=== PATIENT | female | born 1995 | race Caucasian/White ===

== ENCOUNTER 2021-03-29 14:59 | Emergency (ER) | payer MEDICAID, SELFPAY ==
[2021-03-29 15:06] VITALS: BP 93/53; PULSE 95; RESP 16; TEMP 36.6; O2SAT 98; BMI 19.0
[2021-03-29 16:03] LABS: Eosinophils Absolute Auto 0.1 X10*3/uL (0.0-0.4); Eosinophils Percent Auto 1.6 % (0-4); Imm Gran Abs Auto 0.01 X10*3/uL (0.00-0.03); Imm Gran Pct Auto 0.2 % (0.0-0.4); MANUAL DIFF FLAG SCAN; Mean Corpuscular HGB Conc 31.4 g/dl (31.0-35.0); Red Cell Distribution Width 14.4 % (11.0-16.0); SCAN SMEAR FLAG 1
[2021-03-29 16:15] LABS: Basophils Percent Auto 0.5 % (0-2); Hematocrit 36.6 % (37-47); Hemoglobin 11.5 g/dl (12.0-16.0); Lymphocytes Absolute Auto 1.3 X10*3/uL (1.2-4.9); Lymphocytes Percent Auto 30.2 % (20-40); Mean Corpuscular Hemoglobin 28.8 pg (27.0-33.0); Mean Corpuscular Volume 91.7 fL (80-98); Mean Platelet Volume 10.8 fL (9.4-12.3); Monocytes Absolute Auto 0.7 X10*3/uL (0.1-1.2); Monocytes Percent Auto 16.7 % (2-11); Neutrophils Absolute Auto 2.2 X10*3/uL (2.0-8.3); Neutrophils Percent Auto 50.8 % (45-73); Platelet Count 191 X10*3/uL (160-400); Red Blood Count 3.99 X10*6/uL (4.20-5.50); White Blood Count 4.3 X10*3/uL (4.8-10.8)
[2021-03-29 16:22] LABS: SLIDE REVIEW VERIFIED
[2021-03-29 16:38] LABS: Alanine Aminotransferase 20 U/L (0-31); Albumin Level 3.8 g/dL (3.5-5.0); Alkaline Phosphatase 66 U/L (39-117); Anion Gap 10 (12-20); Aspartate Amino Transferase 32 U/L (5-31); Bilirubin Total 0.2 mg/dL (0.0-1.0); Blood Urea Nitrogen 10 mg/dL (9-16); Calcium 8.7 mg/dL (8.4-10.2); Carbon Dioxide 24 mmol/L (22-29); Chloride 110 mmol/L (96-108); Creatinine Clr Calc Pharmacy 93.5; Estimated Glomerular Filt Rate > 60; Glucose Random 88 mg/dL (60-115); Potassium 3.9 mmol/L (3.3-5.1); Sodium 140 mmol/L (135-145); Total Protein 6.9 g/dL (6.5-8.0)
[2021-03-29 19:12] LABS: Glucose Urine UA NEG (NEG); Leukocyte Esterase Urine TRACE (NEG); Nitrite Urine NEG (NEG); PH 6.5 (5.0-8.0); UACC Culture Trigger YES; Urine Blood TRACE (NEG); Urine Ketones NEG (NEG); Urine Protein NEG (NEG-TRACE)
[2021-03-29 19:13] LABS: Appearance Urine CLEAR; Color Urine YELLOW
[2021-03-29 19:16] LABS: UPreg QC Valid YES; Urine Pregnancy NEGATIVE (NEGATIVE)
[2021-03-29 19:21] LABS: Bacteria Urine TRACE /LPF; Mucus Urine 1+ /LPF; RBC Urine 0-2 /HPF (0); Squamous Epithelial Cell Urine 2+ /LPF; WBC Urine 0-2 /HPF (0-4)
--- NOTE | 2021-03-29 21:37 | ED.HA ---
HPI - Headache General Chief Complaint: Headache Stated Complaint: severe headache Time Seen by Provider: 03/29/21 21:36 History of Present Illness HPI Narrative: 25-year-old female presents today having headache mostly in the frontal area. Patient attempted taking Motrin to no avail. Denies any fever chills or neck pain. No history of sudden in the family. History of having headaches in the past. No coughing or congestion and no upper respiratory symptoms. Patient is from home. No focal weakness. No new medication. No dizziness. Does not think she is . No abdominal pain. No vomiting. Positive mild nausea. The headache is worse with light. Worse with sound. There is no change in vision. Rates it at 8/10 Related Data Previous Rx's Medication Instructions Recorded ibuprofen 400 mg PO Q6H PRN #20 tab 03/29/21 Allergies Allergy/AdvReac Type Severity Reaction Status Date / Time No Known Allergies Allergy Unverified 07/03/20 18:30 Review of Systems Review of Systems: Constitutional: No Weight loss, No Fever, No Chills, No Night Sweats, No Fatigue, No Malaise ENT/Mouth: No Hearing loss, No Ear Pain, No Nasal Congestion, No Sinus Pain, No Hoarseness, No sore throat, No Rhinorrhea, No Swallowing Difficulty Eyes: No Eye Pain, No Swelling, No Redness, No Foreign Body, No Discharge, No Vision Changes Cardiovascular: No Chest Pain, No SOB, No Dyspnea on Exertion, No Orthopnea, No Edema, No Palpitations Respiratory: No Cough, No Sputum, No Wheezing, No Smoke Exposure, No Dyspnea Gastrointestinal: Positive Nausea, No Vomiting, No Diarrhea, No Constipation, No abdominal Pain, No Hematochezia, No Melena Genitourinary: no irregular bleeding, No Dysuria, No Urinary Frequency, No Hematuria, No Urinary Incontinence, No Urgency, No Flank Pain, No Urinary Flow Changes, No Hesitancy Musculoskeletal: No joint pain, No Myalgias, No Joint Swelling Skin: No Skin Lesions, No rash Neuro: No Weakness, No Numbness, No Paresthesias, No Loss of Consciousness, No Dizziness, positive Headache Psych: No Anxiety/Panic, No Depression, No SI/HI/AH/VH, No Social Issues, Heme/Lymph: No Bruising, No Bleeding,No Lymphadenopathy Endocrine: No Polyuria, No Polydipsia, No Temperature Intolerance PMFSH Past Medical History Medical History No known health problems Social History Social History Advance Directives: No Advance Directives Information Provided: Yes Patient : No Physical Exam Vital Signs: Vital Signs: Last Vital Signs Temp 98 F 03/29/21 15:06 Pulse 95 03/29/21 15:06 Resp 16 03/29/21 15:06 BP 93/53 L 03/29/21 15:06 Pulse Ox 98 03/29/21 15:06 Body Mass Index 19.0 Appearance: Alert. Oriented X3. No acute distress. Eyes: Pupils equal, round and reactive to light. ENT: Pharynx normal. Neck: Normal inspection. Neck supple. No lymph nodes noted. No crepitus CVS: Normal heart rate and rhythm. Pulses normal. Normal S1 and S2 Respiratory: No respiratory distress. Breath sounds normal. No Wheezing. No rales Abdomen: Soft and nontender. No rigidity. No distention. good BS x4 Skin: Skin warm and dry. Normal skin color. Normal skin turgor. Extremities: No lower extremity edema. Neurovascular intact to all extremities. No Lacerations. No Rash Neuro: Oriented X 3. No motor deficit. No sensory deficit. Moving all extermities. No slurred speech MDM - Headache MDM Narrative Medical decision making narrative: Neurologically intact. Headache improved with migraine treatment. Will discharge patient home. In stable condition. No evidence for bleed. Patient has no fever no chills no evidence for meningitis. In stable condition. Lab Data Result diagrams: 03/29/21 15:52 03/29/21 15:52 Labs: Lab Results 03/29/21 03/29/21 03/29/21 Range/Units 15:52 15:52 19:06 WBC 4.3 L (4.8-10.8) X10*3/uL RBC 3.99 L (4.20-5.50) X10*6/uL Hgb 11.5 L (12.0-16.0) g/dl Hct 36.6 L (37-47) % MCV 91.7 (80-98) fL MCH 28.8 (27.0-33.0) pg MCHC 31.4 (31.0-35.0) g/dl RDW 14.4 (11.0-16.0) % Plt Count 191 (160-400) X10*3/uL MPV 10.8 (9.4-12.3) fL Immature Gran % (Auto) 0.2 (0.0-0.4) % Neut % (Auto) 50.8 (45-73) % Lymph % (Auto) 30.2 (20-40) % [place] % (Auto) 16.7 H (2-11) % Eos % (Auto) 1.6 (0-4) % Baso % (Auto) 0.5 (0-2) % Lymph # (Auto) 1.3 (1.2-4.9) X10*3/uL [place] # (Auto) 0.7 (0.1-1.2) X10*3/uL Eos # (Auto) 0.1 (0.0-0.4) X10*3/uL Baso # (Auto) 0.0 (0.0-0.2) X10*3/uL Abs Immat Gran (auto) 0.01 (0.00-0.03) X10*3/uL Absolute Neuts (auto) 2.2 (2.0-8.3) X10*3/uL Absolute Nucleated RBC 0.000 (0.0-0.012) X10*3/uL Nucleated RBC % (auto) 0.0 (0.0-0.2) /100WBC Smear Tech's Comments VERIFIED Sodium 140 (135-145) mmol/L Potassium 3.9 (3.3-5.1) mmol/L Chloride 110 H (96-108) mmol/L Carbon Dioxide 24 (22-29) mmol/L Anion Gap 10 L (12-20) BUN 10 (9-16) mg/dL Creatinine 0.79 (0.5-1.4) mg/dL Estim Creat Clear Calc 93.5 Estimated GFR > 60 Random Glucose 88 (60-115) mg/dL Calcium 8.7 (8.4-10.2) mg/dL Total Bilirubin 0.2 (0.0-1.0) mg/dL AST 32 H (5-31) U/L ALT 20 (0-31) U/L Alkaline Phosphatase 66 (39-117) U/L Total Protein 6.9 (6.5-8.0) g/dL Albumin 3.8 (3.5-5.0) g/dL Urine Color YELLOW Urine Appearance CLEAR Urine pH 6.5 (5.0-8.0) Ur Specific [place] 1.010 (1.005-1.025) Urine Protein NEG (NEG-TRACE) MG/DL Urine Glucose (UA) NEG (NEG) MG/DL Urine Ketones NEG (NEG) MG/DL Urine Blood TRACE (NEG) Urine Nitrite NEG (NEG) Ur Leukocyte Esterase TRACE H (NEG) Urine RBC 0-2 (0) /HPF Urine WBC 0-2 (0-4) /HPF Ur Squamous Epith Cells 2+ /LPF Urine Bacteria TRACE /LPF Urine Mucus 1+ /LPF Urine Test (NEGATIVE) 03/29/21 Range/Units 19:06 WBC (4.8-10.8) X10*3/uL RBC (4.20-5.50) X10*6/uL Hgb (12.0-16.0) g/dl Hct (37-47) % MCV (80-98) fL MCH (27.0-33.0) pg MCHC (31.0-35.0) g/dl RDW (11.0-16.0) % Plt Count (160-400) X10*3/uL MPV (9.4-12.3) fL Immature Gran % (Auto) (0.0-0.4) % Neut % (Auto) (45-73) % Lymph % (Auto) (20-40) % [place] % (Auto) (2-11) % Eos % (Auto) (0-4) % Baso % (Auto) (0-2) % Lymph # (Auto) (1.2-4.9) X10*3/uL [place] # (Auto) (0.1-1.2) X10*3/uL Eos # (Auto) (0.0-0.4) X10*3/uL Baso # (Auto) (0.0-0.2) X10*3/uL Abs Immat Gran (auto) (0.00-0.03) X10*3/uL Absolute Neuts (auto) (2.0-8.3) X10*3/uL Absolute Nucleated RBC (0.0-0.012) X10*3/uL Nucleated RBC % (auto) (0.0-0.2) /100WBC Smear Tech's Comments Sodium (135-145) mmol/L Potassium (3.3-5.1) mmol/L Chloride (96-108) mmol/L Carbon Dioxide (22-29) mmol/L Anion Gap (12-20) BUN (9-16) mg/dL Creatinine (0.5-1.4) mg/dL Estim Creat Clear Calc Estimated GFR Random Glucose (60-115) mg/dL Calcium (8.4-10.2) mg/dL Total Bilirubin (0.0-1.0) mg/dL AST (5-31) U/L ALT (0-31) U/L Alkaline Phosphatase (39-117) U/L Total Protein (6.5-8.0) g/dL Albumin (3.5-5.0) g/dL Urine Color Urine Appearance Urine pH (5.0-8.0) Ur Specific [place] (1.005-1.025) Urine Protein (NEG-TRACE) MG/DL Urine Glucose (UA) (NEG) MG/DL Urine Ketones (NEG) MG/DL Urine Blood (NEG) Urine Nitrite (NEG) Ur Leukocyte Esterase (NEG) Urine RBC (0) /HPF Urine WBC (0-4) /HPF Ur Squamous Epith Cells /LPF Urine Bacteria /LPF Urine Mucus /LPF Urine Test NEGATIVE (NEGATIVE) Discharge Plan Discharge Clinical Impression: Headache, Migraine Patient Disposition: Home, Self-Care Instructions: Migraine Headache (ED), Acute Headache (ED) Prescriptions: New ibuprofen 400 mg tablet 400 mg PO Q6H PRN (Reason: pain) Qty: 20 RF: 0 Referrals: Cherri Reilly MD [Primary Care Provider] - 2 days Print Language: Irish
[2021-03-29] MEDS: Ketorolac Tromethamine 15 MG/ML VIAL IVPUSH (22:37)
[2021-03-29] MEDS: diphenhydrAMINE HCL 50 MG/ML VIAL 25 MG IVPUSH (22:37)
[2021-03-29] MEDS: Metoclopramide HCl 10 MG/2 ML VIAL IVPUSH (22:38)
[2021-03-29] MEDS: 0.9 % Sodium Chloride 1,000 ML 999 ML IV (22:39)
== END 2021-03-30 00:08 | disposition home or self-care (01) ==
PROVIDERS: Emergency Provider Emergency Medicine Emergency Medical Services; PCP Internal Medicine
DX: G43.909 Migraine, unspecified, not intractable, without status migrainosus (principal)
CPT/HCPCS: 36415; 80053; 81001; 81003; 81025; 85025; 87086; 96361; 96374; 96375; 99284; J1200; J1885; J2765

== ENCOUNTER 2021-05-18 11:17 | Emergency (ER) | payer MEDICAID, SELFPAY ==
--- NOTE | ~2021-05-18 | XR_ITS ---
EXAMINATION: XR MANDIBLE CLINICAL INFORMATION: Left-sided pain. COMPARISON: None TECHNIQUE: 4 views of the mandible were obtained. FINDINGS: Orthopedic screws present in the right and left mandibular condyle. Dental braces in place. Orthopedic plate and screw associated with the maxillary sinuses bilateral. No fracture. No bone destruction. TMJ joints are unremarkable. XR/XR mandible <4V IMPRESSION: No acute abnormality of the mandible.
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
[2021-05-18 12:24] VITALS: BP 98/56; PULSE 83; RESP 18; TEMP 36.6; O2SAT 99; BMI 19.0
[2021-05-18 14:00] VITALS: BP 106/60; PULSE 79; RESP 18; TEMP 36.8; O2SAT 100
[2021-05-18 14:32] LABS: Hematocrit 38.9 % (37-47); Mean Corpuscular HGB Conc 30.8 g/dl (31.0-35.0); Mean Corpuscular Hemoglobin 27.8 pg (27.0-33.0); Mean Corpuscular Volume 90.3 fL (80-98); Mean Platelet Volume 9.9 fL (9.4-12.3); Platelet Count 299 X10*3/uL (160-400); Red Blood Count 4.31 X10*6/uL (4.20-5.50); Red Cell Distribution Width 15.3 % (11.0-16.0); White Blood Count 4.9 X10*3/uL (4.8-10.8)
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
[2021-05-18 14:53] LABS: Anion Gap 13 (12-20); Blood Urea Nitrogen 11 mg/dL (9-16); Calcium 9.3 mg/dL (8.4-10.2); Carbon Dioxide 22 mmol/L (22-29); Chloride 108 mmol/L (96-108); Estimated Glomerular Filt Rate > 60; Glucose Random 83 mg/dL (60-115); Potassium 4.1 mmol/L (3.3-5.1); Sodium 139 mmol/L (135-145)
[2021-05-18] MEDS: 0.9 % Sodium Chloride 1,000 ML 999 ML IVCONT (15:06)
[2021-05-18 15:21] LABS: UPreg QC Valid YES; Urine Pregnancy NEGATIVE (NEGATIVE)
[2021-05-18 16:03] VITALS: BP 113/66; PULSE 71; RESP 18; TEMP 36.5; O2SAT 98
[2021-05-18] MEDS: iohexoL 350 MG/ML 100 ML INFUS..BTL 65 ML IV (16:05)
--- NOTE | 2021-05-18 17:10 | PC.NURSE ---
PT AOX4, AMB WITH STEADY GAIT WAITING ON DISPO
[2021-05-18 18:17] VITALS: BP 123/68; PULSE 76; RESP 18; TEMP 36.9; O2SAT 100
== END 2021-05-18 19:08 | disposition home or self-care (01) ==
PROVIDERS: Emergency Provider Emergency Medicine; PCP Internal Medicine
DX: R68.84 Jaw pain (principal); M54.2 Cervicalgia; R22.0 Localized swelling, mass and lump, head
CPT/HCPCS: 36415; 70100; 70498; 80048; 81025; 85027; 96360; 99284; Q9967

== ENCOUNTER 2021-06-01 09:26 | Emergency (ER) | payer MEDICAID, SELFPAY ==
--- NOTE | 2021-06-01 10:35 | ED_ITS ---
HPI - Female Genitourinary General Chief complaint: Urogenital-Female Stated complaint: urination problems Time Seen by Provider: 06/01/21 10:35 Source: patient Mode of arrival: ambulatory Limitations: no limitations and language barrier History of Present Illness HPI Narrative: Patient complaining of urinary complaints for last 4 days with frequency dysuria no hematuria no history of kidney stone no fever chills no nausea vomiting no flank pain feels some mild suprapubic discomfort Related Data Previous Rx's Medication Instructions Recorded ibuprofen 400 mg tablet 400 mg PO Q6H PRN #20 tab 03/29/21 nitrofurantoin 100 mg PO Q12H 7 Days #14 cap 06/01/21 monohydrate/macrocrystals 100 mg capsule (Macrobid) phenazopyridine 200 mg tablet 200 mg PO TID PRN 2 Days #5 tab 06/01/21 (Pyridium) Allergies Allergy/AdvReac Type Severity Reaction Status Date / Time No Known Allergies Allergy Unverified 07/03/20 18:30 Review of Systems Review of Systems: Constitutional : No Weight loss, No Fever, No Chills ENT/Mouth : No sore throat, No Rhinorrhea Eyes: No Eye Pain, No Swelling Cardiovascular : No Chest Pain, no palpitations Respiratory : No Cough, No Sputum, no shortness of breath Gastrointestinal : no Nausea, No Vomiting, No Diarrhea, No abdominal Pain, no black stools Genitourinary :++ Dysuria, ++Urinary Frequency Musculoskeletal : No joint pain, No Myalgias, No Joint Swelling Skin : No Skin Lesions, No rash Neuro : No Weakness, No Numbness, No Dizziness, No Headache Psych : No Anxiety/Panic, No Depression Heme/Lymph: No Bruising, No Lymphadenopathy Endocrine : No Polyuria, No Polydipsia All other systems reviewed and are negative [facility] Past Medical History Medical History Migraines No known health problems Social History Social History Patient Tobacco Use Status: Never used Tobacco Advance Directives: No Advance Directives Information Provided: No Patient : No Physical Exam Vital Signs: Vital Signs: Last Vital Signs Temp 98.7 F 06/01/21 10:47 Pulse 84 06/01/21 10:47 Resp 16 06/01/21 10:47 BP 109/55 L 06/01/21 10:47 Pulse Ox 98 06/01/21 10:47 Body Mass Index 22.2 Appearance: Alert. Oriented X3. No acute distress. Eyes: PERRLA, No Nystagmus ENT: Pharynx normal. Oral Mucosa moist Neck: Normal inspection. Neck supple. CVS: Normal heart rate and rhythm. Pulses normal. Respiratory: No respiratory distress. Equal air entry bilateral, Abdomen: Soft and nontender. Bowel sounds are present, no mass palpable, no CVA tenderness Skin: Skin warm and dry. Normal skin color. Normal skin turgor. Extremities: No lower extremity edema. No calf tenderness Neuro: Oriented X 3. MDM - Female Genitourinary Lab Data Labs: Lab Results 06/01/21 06/01/21 Range/Units 11:11 11:11 Urine Color YELLOW Urine Appearance CLOUDY Urine pH 7.0 (5.0-8.0) Ur Specific [place] 1.020 (1.005-1.025) Urine Protein 2+ H (NEG-TRACE) MG/DL Urine Glucose (UA) NEG (NEG) MG/DL Urine Ketones NEG (NEG) MG/DL Urine Blood 3+ H (NEG) Urine Nitrite NEG (NEG) Ur Leukocyte Esterase 1+ H (NEG) Urine RBC 15-29 H (0) /HPF Urine WBC 50-75 H (0-4) /HPF Ur Squamous Epith Cells 1+ /LPF Urine Bacteria 2+ /LPF Urine Test NEGATIVE (NEGATIVE) Discharge Plan Discharge Clinical Impression: Urinary tract infection Qualifiers: Urinary tract infection type: acute cystitis Hematuria presence: with hematuria Qualified Code(s): N30.01 - Acute cystitis with hematuria Patient Disposition: Home, Self-Care Instructions: Urinary Tract Infection in Women (ED) Additional Instructions: Drink plenty of fluids Take antibiotic as as advised Follow-up with PCP if not better Prescriptions: New nitrofurantoin monohyd/m-cryst [Macrobid] 100 mg capsule 100 mg PO Q12H 7 Days Qty: 14 RF: 0 phenazopyridine [Pyridium] 200 mg tablet 200 mg PO TID PRN (Reason: pain) 2 Days Qty: 5 RF: 0 No Action ibuprofen 400 mg tablet 400 mg PO Q6H PRN (Reason: pain) Qty: 20 RF: 0 Stand Alone Forms: Work/School Release Interventions: ED Discharge Assessment Last Done: 06/01/21 12:15 Discharge Date/Time: 06/01/21 12:15 Print Language: Armenian
[2021-06-01 10:47] VITALS: BP 109/55; PULSE 84; RESP 16; TEMP 37.1; O2SAT 98; BMI 22.2
[2021-06-01 11:26] LABS: Glucose Urine UA NEG (NEG); Leukocyte Esterase Urine 1+ (NEG); Nitrite Urine NEG (NEG); UACC Culture Trigger YES; Urine Blood 3+ (NEG); Urine Ketones NEG (NEG); Urine Protein 2+ MG/DL (NEG-TRACE)
[2021-06-01 11:30] LABS: Appearance Urine CLOUDY; Color Urine YELLOW
[2021-06-01 11:40] LABS: Bacteria Urine 2+ /LPF; Squamous Epithelial Cell Urine 1+ /LPF; WBC Urine 50-75 /HPF (0-4)
[2021-06-01] MEDS: Phenazopyridine HCL 200 MG TABLET PO (11:58)
[2021-06-01] MEDS: Nitrofurantoin Monohyd/M-Cryst 100 MG CAPSULE PO (11:58)
[2021-06-01 12:08] LABS: UPreg QC Valid YES; Urine Pregnancy NEGATIVE (NEGATIVE)
== END 2021-06-01 12:15 | disposition home or self-care (01) ==
PROVIDERS: Emergency Provider Internal Medicine; PCP Internal Medicine
DX: N30.01 Acute cystitis with hematuria (principal)
CPT/HCPCS: 81001; 81025; 87086; 87088; 87186; 99283

== ENCOUNTER 2023-01-27 14:24 | Emergency (ER) | payer MEDICAID, SELFPAY ==
--- NOTE | ~2023-01-27 | CT_ITS ---
EXAMINATION: CT ABDOMEN AND PELVIS WITHOUT CONTRAST CLINICAL INFORMATION: Left lower quadrant pain. COMPARISON: Pelvic ultrasound 04/30/2020. TECHNIQUE: Multidetector volumetric imaging was performed from the superior aspect of the liver through the pubic symphysis. Sagittal and coronal reformatted images were obtained on the technologist's workstation. This CT examination was performed using dose optimization techniques as appropriate, variously including the following: *Automated exposure control *Adjustment of mA and/or kV according to patient size (this includes techniques or standardized protocols for targeted exams where dose is matched to indication/reason for exam; i.e. extremities or head) *Use of iterative reconstruction technique DLP: 353 mGy-cm FINDINGS: LUNG BASES: No focal consolidation or pleural effusion. LIVER, GALLBLADDER, AND BILIARY TREE: Limited noncontrast examination of the liver, unremarkable. The gallbladder is filled with slightly hyperdense debris. No calcified gallbladder calculi or significant inflammatory changes to suspect acute cholecystitis. No biliary ductal dilatation. PANCREAS: Limited noncontrast examination, unremarkable. SPLEEN: Limited noncontrast examination, unremarkable. ADRENAL GLANDS: Unremarkable. KIDNEYS AND URETERS: Limited noncontrast examination without evidence of hydronephrosis or nephrolithiasis. No significant perinephric fat stranding. BLADDER: Unremarkable. GASTROINTESTINAL TRACT: The small and large bowel are unremarkable. The appendix is unremarkable. ABDOMINAL WALL: No significant hernia is appreciated. LYMPH NODES: Evaluation for lymph nodes is limited due to paucity of abdominal fat and lack of IV contrast. Nonspecific enlarged mesenteric lymph nodes, for instance measuring 1 cm short axis on image 40 series 2. VASCULAR: Limited noncontrast examination. Abdominal aorta is normal in caliber. PELVIC VISCERA: Ovaries appear symmetric. No inflammatory changes or free fluid in the pelvis. OSSEOUS STRUCTURES: No acute or aggressive appearing osseous abnormalities. CT/CT abdomen pelvis wo IV con IMPRESSION: 1. Hyperdense debris filling the lumen of the gallbladder, nonspecific may represent noncalcified stones, sludge or bile. If indicated further evaluation with a right upper quadrant ultrasound could be obtained. 2. Nonspecific mesenteric lymphadenopathy, most likely infectious or inflammatory in a patient of this age, related with mesenteric adenitis/panniculitis or gastroenteritis. If there are high risk factors, out of caution a follow-up CT could be obtained to reassess.
[2023-01-27 14:55] VITALS: BP 107/61; PULSE 82; RESP 18; TEMP 36.6; O2SAT 99; BMI 19.3
--- NOTE | 2023-01-27 14:55 | ED.ABDPAIN ---
HPI - Abdominal Pain General Chief Complaint: Abdominal Pain <Maryjane Booker NP - Last Filed: 01/27/23 14:59> Stated Complaint: abd pain <Maryjane Booker NP - Last Filed: 01/27/23 14:59> Time Seen by Provider: 01/27/23 17:21 <Maryjane Booker NP - Last Filed: 01/27/23 14:59> Source: patient <FANTA Harrison - Last Filed: 01/27/23 19:01> Mode of arrival: ambulatory <FANTA Harrison - Last Filed: 01/27/23 19:01> Limitations: no limitations <FANTA Harrison - Last Filed: 01/27/23 19:01> History of Present Illness HPI narrative: 27 y/o female with history of ectopic s/p tube removal who presents to the ER for evaluation of intermittent LLQ pains for the last 4 days. She states the pain felt similar to when she had an ectopic so she wanted to get evaluated. She denies N/V/D and is having normal bowel movements. She reports intermittent discomfort with urination. No blood in her urine, no back pain, no vagainal discharge. No pelvic pain. No fever or chills. <FANTA Harrison - Last Filed: 01/27/23 19:01> MD elicited complaint: abdominal pain <FANTA Harrison - Last Filed: 01/27/23 19:01> Pertinent past history: other (hx ectopic ) <FANTA Harrison - Last Filed: 01/27/23 19:01> Onset (ago): day(s) (4) <FANTA Harrison - Last Filed: 01/27/23 19:01> Pain Consistency: intermittent <FANTA Harrison Last Filed: 01/27/23 19:01> Location: LLQ <FANTA Harrison Last Filed: 01/27/23 19:01> Severity: moderate <FANTA Harrison Last Filed: 01/27/23 19:01> Quality: aching <FANTA Harrison - Last Filed: 01/27/23 19:01> Radiation: none <FANTA Harrison - Last Filed: 01/27/23 19:01> Migration to: no migration <FANTA Harrison - Last Filed: 01/27/23 19:01> Exacerbating factors: nothing <FANTA Harrison - Last Filed: 01/27/23 19:01> Relieving factors: nothing <FANTA Harrison - Last Filed: 01/27/23 19:01> Context: history of similar episodes <FANTA Harrison - Last Filed: 01/27/23 19:01> Associated symptoms: denies other symptoms <FANTA Harrison - Last Filed: 01/27/23 19:01> Related Data Home Medications: Previous Rx's Medication Instructions Recorded ibuprofen 400 mg tablet 400 mg PO Q6H PRN pain #20 tabs 03/29/21 nitrofurantoin 100 mg PO Q12H 7 days #14 caps 06/01/21 monohydrate/macrocrystals 100 mg capsule (Macrobid) phenazopyridine 200 mg tablet 200 mg PO TID PRN pain 2 days #5 06/01/21 (Pyridium) tabs naproxen 500 mg tablet 500 mg PO BID PRN pain #20 tabs 01/27/23 <Maryjane Booker NP - Last Filed: 01/27/23 14:59> Allergies/Adverse Reactions: Allergies Allergy/AdvReac Type Severity Reaction Status Date / Time No Known Allergies Allergy Unverified 07/03/20 18:30 <Maryjane Booker NP - Last Filed: 01/27/23 14:59> Review of Systems Review of Systems Yes all other systems are reviewed and are negative <FANTA Harrison - Last Filed: 01/27/23 19:01> PMFSH Past Medical History Medical History: Medical History Migraines No known health problems <Maryjane Booker NP - Last Filed: 01/27/23 14:59> Social History Social History: Social History Patient Tobacco Use Status: Never used Tobacco Advance Directives: No Advance Directives Information Provided: No <Maryjane Booker NP - Last Filed: 01/27/23 14:59> Physical Exam ED Vital Signs: Vital Signs - 24 hr 01/27/23 14:55 01/27/23 17:23 Temperature 98 F 98.1 F Pulse Rate 82 75 Respiratory Rate 18 18 Blood Pressure 107/61 111/65 Pulse Oximetry 99 99 Oxygen Delivery Method Room Air BMI result Body Mass Index 19.3 <Maryjane Booker NP - Last Filed: 01/27/23 14:59> Vital Signs - 24 hr 01/27/23 14:55 01/27/23 17:23 Temperature 98 F 98.1 F Pulse Rate 82 75 Respiratory Rate 18 18 Blood Pressure 107/61 111/65 Pulse Oximetry 99 99 Oxygen Delivery Method Room Air BMI result Body Mass Index 19.3 <FANTA Harrison - Last Filed: 01/27/23 19:01> Appearance: Alert. Oriented X3. No acute distress. Head: normocephalic, atraumatic. Eyes: Pupils equal, round and reactive to light. ENT: Pharynx normal. No tonsillar swelling or exudate. Neck: Normal inspection. Neck supple. CVS: Normal heart rate and rhythm. Pulses normal. Respiratory: No respiratory distress. Breath sounds normal. Abdomen: Soft with mild tenderness to deep palpation of the LLQ only, no rebound or guarding. normal active +BS x4 Skin: Skin warm and dry. Normal skin color. Normal skin turgor. No rashes. Extremities: No lower extremity edema. No joint swelling. Neuro/psych: Oriented X 3. No motor deficit. No sensory deficit. CN II-XII intact. Normal speech and cognition. <FANTA Harrison - Last Filed: 01/27/23 19:01> Course Course Course Narrative: This is a rapid medical exam. Deferred additional HPI, ROS, PE to primary provider. 27 yo female with no known medical problems here with lower abdominal pain x 4 days. LMP 01/10. No vomiting/diarrhea/urinary symptoms. Will obtain labs, UA VSS <Maryjane Booker NP - Last Filed: 01/27/23 14:59> Medical Decision Making Medical Decision Making MDM Narrative: 27 yo female presenting with LLQ pain x4 days. Exam is benign. Labs benign. UA with some blood, no infection, no . CT scan showing possible mesenteric adenitis. Treatment is supportive care and pain control. patient informed of results and management as well as return precautions. stable for d/c home. <FANTA Harrison - Last Filed: 01/27/23 19:01> Differential Diagnosis Differential Diagnoses: The differential diagnosis associated with the presentation includes <FANTA Harrison - Last Filed: 01/27/23 19:01> diverticulitis, constipation, ectopic , ovarian cyst, mittelschmerz, UTI, kidney stone <FANTA Harrison - Last Filed: 01/27/23 19:01> Lab Data MDM Lab Attestation statement: I reviewed the patient's lab results. <FANTA Harrison - Last Filed: 01/27/23 19:01> unremakrable. <FANTA Harrison - Last Filed: 01/27/23 19:01> Result Diagrams: 01/27/23 15:28 01/27/23 15:28 <Maryjane Booker NP - Last Filed: 01/27/23 14:59> Labs: Lab Results 01/27/23 01/27/23 01/27/23 Range/Units 15:28 15:28 15:28 WBC 6.0 (4.8-10.8) X10*3/uL RBC 4.30 (4.20-5.50) X10*6/uL Hgb 12.8 (12.0-16.0) g/dl Hct 39.9 (37.0-47.0) % MCV 92.8 (80.0-98.0) fL MCH 29.8 (27.0-33.0) pg MCHC 32.1 (31.0-35.0) g/dl RDW 14.4 (11.0-16.0) % Plt Count 285 (160-400) X10*3/uL MPV 10.6 (9.4-12.3) fL Immature Gran % (Auto) 0.2 (0.0-0.4) % Neut % (Auto) 60.0 (45-73) % Lymph % (Auto) 28.4 (20-40) % Christian % (Auto) 9.9 (2-11) % Eos % (Auto) 1.2 (0-4) % Baso % (Auto) 0.3 (0-2) % Lymph # (Auto) 1.7 (1.2-4.9) X10*3/uL Christian # (Auto) 0.6 (0.1-1.2) X10*3/uL Eos # (Auto) 0.1 (0.0-0.4) X10*3/uL Baso # (Auto) 0.0 (0.0-0.2) X10*3/uL Abs Immat Gran (auto) 0.01 (0.00-0.03) X10*3/uL Absolute Neuts (auto) 3.6 (2.0-8.3) x10*3/uL Absolute Nucleated RBC 0.000 (0.0-0.012) X10*3/uL Nucleated RBC % (auto) 0.0 (0.0-0.2) /100WBC Sodium 140 (135-145) mmol/L Potassium 4.0 (3.3-5.1) mmol/L Chloride 108 (96-108) mmol/L Carbon Dioxide 26 (22-29) mmol/L Anion Gap 10 L (12-20) BUN 9 (9-16) mg/dL Creatinine 0.85 (0.5-1.4) mg/dL Estim Creat Clear Calc 86.9 Estimated GFR > 60 Random Glucose 77 (60-115) mg/dL Calcium 8.9 (8.4-10.2) mg/dL Total Bilirubin 0.3 (0.0-1.0) mg/dL Direct Bilirubin 0.1 (0.0-0.5) mg/dL AST 22 (5-31) U/L ALT 13 (0-31) U/L Alkaline Phosphatase 71 (39-117) U/L Total Protein 7.0 (6.5-8.0) g/dL Albumin 4.0 (3.5-5.0) g/dL Urine Color Urine Appearance Urine pH (5.0-9.0) Ur Specific [place] (1.005-1.025) Urine Protein (Neg-Trace) mg/dL Urine Glucose (UA) (Negative) mg/dL Urine Ketones (Negative) mg/dL Urine Blood (Negative) Urine Nitrite (Negative) Ur Leukocyte Esterase (Negative) Urine RBC (0-2) /HPF Urine WBC (0-5) /HPF Ur Squamous Epith Cells (0-2) /HPF Urine Bacteria (None Seen) Hyaline Casts (0-2) /LPF Urine Test (NEGATIVE) COVID-19 ([facility]) Negative (Negative) COVID-19 Clin Com See Note 01/27/23 01/27/23 Range/Units 15:28 15:28 WBC (4.8-10.8) X10*3/uL RBC (4.20-5.50) X10*6/uL Hgb (12.0-16.0) g/dl Hct (37.0-47.0) % MCV (80.0-98.0) fL MCH (27.0-33.0) pg MCHC (31.0-35.0) g/dl RDW (11.0-16.0) % Plt Count (160-400) X10*3/uL MPV (9.4-12.3) fL Immature Gran % (Auto) (0.0-0.4) % Neut % (Auto) (45-73) % Lymph % (Auto) (20-40) % Christian % (Auto) (2-11) % Eos % (Auto) (0-4) % Baso % (Auto) (0-2) % Lymph # (Auto) (1.2-4.9) X10*3/uL Christian # (Auto) (0.1-1.2) X10*3/uL Eos # (Auto) (0.0-0.4) X10*3/uL Baso # (Auto) (0.0-0.2) X10*3/uL Abs Immat Gran (auto) (0.00-0.03) X10*3/uL Absolute Neuts (auto) (2.0-8.3) x10*3/uL Absolute Nucleated RBC (0.0-0.012) X10*3/uL Nucleated RBC % (auto) (0.0-0.2) /100WBC Sodium (135-145) mmol/L Potassium (3.3-5.1) mmol/L Chloride (96-108) mmol/L Carbon Dioxide (22-29) mmol/L Anion Gap (12-20) BUN (9-16) mg/dL Creatinine (0.5-1.4) mg/dL Estim Creat Clear Calc Estimated GFR Random Glucose (60-115) mg/dL Calcium (8.4-10.2) mg/dL Total Bilirubin (0.0-1.0) mg/dL Direct Bilirubin (0.0-0.5) mg/dL AST (5-31) U/L ALT (0-31) U/L Alkaline Phosphatase (39-117) U/L Total Protein (6.5-8.0) g/dL Albumin (3.5-5.0) g/dL Urine Color Yellow Urine Appearance Clear Urine pH 6.5 (5.0-9.0) Ur Specific [place] 1.025 (1.005-1.025) Urine Protein Trace (Neg-Trace) mg/dL Urine Glucose (UA) Negative (Negative) mg/dL Urine Ketones Trace (Negative) mg/dL Urine Blood Moderate (2+) H (Negative) Urine Nitrite Negative (Negative) Ur Leukocyte Esterase Negative (Negative) Urine RBC 3-5 H (0-2) /HPF Urine WBC 0-5 (0-5) /HPF Ur Squamous Epith Cells 0-2 (0-2) /HPF Urine Bacteria Trace (None Seen) Hyaline Casts 0-2 (0-2) /LPF Urine Test NEGATIVE (NEGATIVE) COVID-19 ([facility]) (Negative) COVID-19 Clin Com <Maryjane Booker NP - Last Filed: 01/27/23 14:59> Lab Results 01/27/23 01/27/23 01/27/23 Range/Units 15:28 15:28 15:28 WBC 6.0 (4.8-10.8) X10*3/uL RBC 4.30 (4.20-5.50) X10*6/uL Hgb 12.8 (12.0-16.0) g/dl Hct 39.9 (37.0-47.0) % MCV 92.8 (80.0-98.0) fL MCH 29.8 (27.0-33.0) pg MCHC 32.1 (31.0-35.0) g/dl RDW 14.4 (11.0-16.0) % Plt Count 285 (160-400) X10*3/uL MPV 10.6 (9.4-12.3) fL Immature Gran % (Auto) 0.2 (0.0-0.4) % Neut % (Auto) 60.0 (45-73) % Lymph % (Auto) 28.4 (20-40) % Christian % (Auto) 9.9 (2-11) % Eos % (Auto) 1.2 (0-4) % Baso % (Auto) 0.3 (0-2) % Lymph # (Auto) 1.7 (1.2-4.9) X10*3/uL Christian # (Auto) 0.6 (0.1-1.2) X10*3/uL Eos # (Auto) 0.1 (0.0-0.4) X10*3/uL Baso # (Auto) 0.0 (0.0-0.2) X10*3/uL Abs Immat Gran (auto) 0.01 (0.00-0.03) X10*3/uL Absolute Neuts (auto) 3.6 (2.0-8.3) x10*3/uL Absolute Nucleated RBC 0.000 (0.0-0.012) X10*3/uL Nucleated RBC % (auto) 0.0 (0.0-0.2) /100WBC Sodium 140 (135-145) mmol/L Potassium 4.0 (3.3-5.1) mmol/L Chloride 108 (96-108) mmol/L Carbon Dioxide 26 (22-29) mmol/L Anion Gap 10 L (12-20) BUN 9 (9-16) mg/dL Creatinine 0.85 (0.5-1.4) mg/dL Estim Creat Clear Calc 86.9 Estimated GFR > 60 Random Glucose 77 (60-115) mg/dL Calcium 8.9 (8.4-10.2) mg/dL Total Bilirubin 0.3 (0.0-1.0) mg/dL Direct Bilirubin 0.1 (0.0-0.5) mg/dL AST 22 (5-31) U/L ALT 13 (0-31) U/L Alkaline Phosphatase 71 (39-117) U/L Total Protein 7.0 (6.5-8.0) g/dL Albumin 4.0 (3.5-5.0) g/dL Urine Color Urine Appearance Urine pH (5.0-9.0) Ur Specific [place] (1.005-1.025) Urine Protein (Neg-Trace) mg/dL Urine Glucose (UA) (Negative) mg/dL Urine Ketones (Negative) mg/dL Urine Blood (Negative) Urine Nitrite (Negative) Ur Leukocyte Esterase (Negative) Urine RBC (0-2) /HPF Urine WBC (0-5) /HPF Ur Squamous Epith Cells (0-2) /HPF Urine Bacteria (None Seen) Hyaline Casts (0-2) /LPF Urine Test (NEGATIVE) COVID-19 ([facility]) Negative (Negative) COVID-19 Clin Com See Note 01/27/23 01/27/23 Range/Units 15:28 15:28 WBC (4.8-10.8) X10*3/uL RBC (4.20-5.50) X10*6/uL Hgb (12.0-16.0) g/dl Hct (37.0-47.0) % MCV (80.0-98.0) fL MCH (27.0-33.0) pg MCHC (31.0-35.0) g/dl RDW (11.0-16.0) % Plt Count (160-400) X10*3/uL MPV (9.4-12.3) fL Immature Gran % (Auto) (0.0-0.4) % Neut % (Auto) (45-73) % Lymph % (Auto) (20-40) % Christian % (Auto) (2-11) % Eos % (Auto) (0-4) % Baso % (Auto) (0-2) % Lymph # (Auto) (1.2-4.9) X10*3/uL Christian # (Auto) (0.1-1.2) X10*3/uL Eos # (Auto) (0.0-0.4) X10*3/uL Baso # (Auto) (0.0-0.2) X10*3/uL Abs Immat Gran (auto) (0.00-0.03) X10*3/uL Absolute Neuts (auto) (2.0-8.3) x10*3/uL Absolute Nucleated RBC (0.0-0.012) X10*3/uL Nucleated RBC % (auto) (0.0-0.2) /100WBC Sodium (135-145) mmol/L Potassium (3.3-5.1) mmol/L Chloride (96-108) mmol/L Carbon Dioxide (22-29) mmol/L Anion Gap (12-20) BUN (9-16) mg/dL Creatinine (0.5-1.4) mg/dL Estim Creat Clear Calc Estimated GFR Random Glucose (60-115) mg/dL Calcium (8.4-10.2) mg/dL Total Bilirubin (0.0-1.0) mg/dL Direct Bilirubin (0.0-0.5) mg/dL AST (5-31) U/L ALT (0-31) U/L Alkaline Phosphatase (39-117) U/L Total Protein (6.5-8.0) g/dL Albumin (3.5-5.0) g/dL Urine Color Yellow Urine Appearance Clear Urine pH 6.5 (5.0-9.0) Ur Specific [place] 1.025 (1.005-1.025) Urine Protein Trace (Neg-Trace) mg/dL Urine Glucose (UA) Negative (Negative) mg/dL Urine Ketones Trace (Negative) mg/dL Urine Blood Moderate (2+) H (Negative) Urine Nitrite Negative (Negative) Ur Leukocyte Esterase Negative (Negative) Urine RBC 3-5 H (0-2) /HPF Urine WBC 0-5 (0-5) /HPF Ur Squamous Epith Cells 0-2 (0-2) /HPF Urine Bacteria Trace (None Seen) Hyaline Casts 0-2 (0-2) /LPF Urine Test NEGATIVE (NEGATIVE) COVID-19 ([facility]) (Negative) COVID-19 Clin Com <FANTA Harrison - Last Filed: 01/27/23 19:01> Independent Interpretation I performed an independent interpretation of an: CT Scan <FANTA Harrison - Last Filed: 01/27/23 19:01> Interpretation: agree w radiology read <FANTA Harrison - Last Filed: 01/27/23 19:01> Radiology Impression Discussion of test interpretation with radiology: I have reviewed the radiologist's reading. <FANTA Harrison - Last Filed: 01/27/23 19:01> Radiologist Impression: CT/CT abdomen pelvis wo IV con IMPRESSION: 1.? Hyperdense debris filling the lumen of the gallbladder, nonspecific may represent noncalcified stones, sludge or bile. If indicated further evaluation with a right upper quadrant ultrasound could be obtained. 2.? Nonspecific mesenteric lymphadenopathy, most likely infectious or inflammatory in a patient of this age, related with mesenteric adenitis/panniculitis or gastroenteritis. If there are high risk factors, out of caution a follow-up CT could be obtained to reassess. <FANTA Harrison - Last Filed: 01/27/23 19:01> External Record Review External record reviewed: Outpatient record, Prior outpatient labs and Prior outpatient radiology <FANTA Harrison - Last Filed: 01/27/23 19:01> Prescription Management I considered prescription management with: Pain Medication <FANTA Harrison Last Filed: 01/27/23 19:01> Critical Care Time Critical Care Time Critical Care Time: No <FANTA Harrison - Last Filed: 01/27/23 19:01> Discharge Plan Discharge Clinical Impression: Abdominal pain, Acute mesenteric adenitis <Maryjane Booker NP - Last Filed: 01/27/23 14:59> Patient Disposition: Home, Self-Care <Maryjane Booker NP - Last Filed: 01/27/23 14:59> Instructions: Mesenteric Adenitis (ED) <Maryjane Booker NP - Last Filed: 01/27/23 14:59> Additional Instructions: Your CT scan showed some nonspecific enlarged lymph nodes in your abdomen. This is usually due to a viral infection and goes away with time. Recommend taking the prescribed anti-inflammatory medication for pain. Rest and drink plenty of fluids Follow up with your doctor If you develop new or worsening symptoms call 911 or come back to the ER for further evaluation. <Maryjane Booker NP - Last Filed: 01/27/23 14:59> Prescriptions: New naproxen 500 mg tablet 500 mg PO BID PRN (Reason: pain) Qty: 20 0RF No Action ibuprofen 400 mg tablet 400 mg PO Q6H PRN (Reason: pain) Qty: 20 0RF nitrofurantoin monohyd/m-cryst [Macrobid] 100 mg capsule 100 mg PO Q12H 7 Days Qty: 14 0RF Rx Instructions: must administer with a meal/food phenazopyridine [Pyridium] 200 mg tablet 200 mg PO TID PRN (Reason: pain) 2 Days Qty: 5 0RF <Maryjane Booker PLATING ENGINEER - Last Filed: 01/27/23 14:59>
[2023-01-27 15:35] LABS: MANUAL DIFF FLAG NO
[2023-01-27 15:38] LABS: Appearance Urine Clear; Color Urine Yellow; Glucose Urine UA Negative (Negative); Leukocyte Esterase Urine Negative (Negative); Nitrite Urine Negative (Negative); PH 6.5 (5.0-9.0); Specific Gravity - Urine 1.025 (1.005-1.025); UMIC TRIGGER UACC YES; Urine Blood Moderate (2+) (Negative); Urine Ketones Trace mg/dL (Negative); Urine Protein Trace mg/dL (Neg-Trace)
[2023-01-27 15:47] LABS: Basophils Percent Auto 0.3 % (0-2); Eosinophils Absolute Auto 0.1 X10*3/uL (0.0-0.4); Eosinophils Percent Auto 1.2 % (0-4); Hematocrit 39.9 % (37.0-47.0); Hemoglobin 12.8 g/dl (12.0-16.0); Imm Gran Abs Auto 0.01 X10*3/uL (0.00-0.03); Imm Gran Pct Auto 0.2 % (0.0-0.4); Lymphocytes Absolute Auto 1.7 X10*3/uL (1.2-4.9); Lymphocytes Percent Auto 28.4 % (20-40); Mean Corpuscular HGB Conc 32.1 g/dl (31.0-35.0); Mean Corpuscular Hemoglobin 29.8 pg (27.0-33.0); Mean Corpuscular Volume 92.8 fL (80.0-98.0); Mean Platelet Volume 10.6 fL (9.4-12.3); Monocytes Absolute Auto 0.6 X10*3/uL (0.1-1.2); Monocytes Percent Auto 9.9 % (2-11); Neutrophils Absolute Auto 3.6 x10*3/uL (2.0-8.3); Platelet Count 285 X10*3/uL (160-400); Red Cell Distribution Width 14.4 % (11.0-16.0)
[2023-01-27 15:50] LABS: COVID-19 Test Negative (Negative); IDNOW Serial# BCCEAD1C
[2023-01-27 15:54] LABS: Alanine Aminotransferase 13 U/L (0-31); Alkaline Phosphatase 71 U/L (39-117); Anion Gap 10 (12-20); Aspartate Amino Transferase 22 U/L (5-31); Bilirubin Direct 0.1 mg/dL (0.0-0.5); Bilirubin Total 0.3 mg/dL (0.0-1.0); Blood Urea Nitrogen 9 mg/dL (9-16); Calcium 8.9 mg/dL (8.4-10.2); Carbon Dioxide 26 mmol/L (22-29); Chloride 108 mmol/L (96-108); Creatinine Clr Calc Pharmacy 86.9; Estimated Glomerular Filt Rate > 60; Glucose Random 77 mg/dL (60-115); Sodium 140 mmol/L (135-145)
[2023-01-27 16:16] LABS: Bacteria Urine Trace (None Seen); Hyaline Casts Urine 0-2 /LPF (0-2); Squamous Epithelial Cell Urine 0-2 /HPF (0-2); WBC Urine 0-5 /HPF (0-5)
[2023-01-27 16:59] LABS: UPreg QC Valid YES; Urine Pregnancy NEGATIVE (NEGATIVE)
[2023-01-27 17:23] VITALS: BP 111/65; PULSE 75; RESP 18; TEMP 36.7; O2SAT 99
--- NOTE | 2023-01-27 17:24 | PC.NURSE ---
pt ambulatory to exam room- vitals updated
== END 2023-01-27 19:19 | disposition home or self-care (01) ==
PROVIDERS: Nurse Practitioner Family; Emergency Provider Emergency Medicine
DX: R10.32 Left lower quadrant pain (principal); I88.0 Nonspecific mesenteric lymphadenitis; Z20.822 Contact with and (suspected) exposure to COVID-19; Z20.828 Contact with and (suspected) exposure to other viral communicable diseases; Z79.899 Other long term (current) drug therapy
CPT/HCPCS: 36415; 74176; 80048; 80076; 81001; 81025; 85025; 87635; 99283; 99284

== ENCOUNTER 2023-08-09 10:23 | Emergency (ER) | payer MEDICAID, SELFPAY ==
--- NOTE | ~2023-08-09 | US_ITS ---
EXAMINATION: US DIAGNOSTIC ULTRASOUND BREAST, LEFT CLINICAL INFORMATION: Warm lump and erythema. Evaluate for abscess.. COMPARISON: None available. TECHNIQUE: Ultrasound of the lower inner quadrant of the left breast is performed with real-time boo scale imaging and color Doppler. FINDINGS: There is an ill-defined complex cystic lesion 7:00 axis of the left breast corresponding to palpable abnormality. This demonstrates internal echoes and increased peripheral vascularity. This appears to track back to the nipple/retroareolar area. This measures 2.5 x 2.8 x 3.6 cm. US/US breast LT limited IMPRESSION: 2.5 x 2.8 x 3.6 cm heterogeneous complex cystic area in the 7:00 axis of the left breast increased with peripheral vascularity. Ultrasound appearance is nonspecific but in the right clinical setting would be suggestive of an abscess.
--- NOTE | ~2023-08-09 | XR_ITS ---
EXAMINATION: XR CHEST CLINICAL INFORMATION: Chest pain COMPARISON: None available. TECHNIQUE: Frontal view of the chest was obtained. FINDINGS: No significant abnormality is noted involving the heart, lungs, mediastinum, bony thorax or soft tissues. XR/XR chest 1V IMPRESSION: Unremarkable chest examination.
--- NOTE | 2023-08-09 10:26 | ECG_ITS ---
Test Reason : CHEST PAIN Blood Pressure : / mmHG Vent. Rate : 079 BPM Atrial Rate : 079 BPM P-R Int : 100 ms QRS Dur : 076 ms QT Int : 352 ms P-R-T Axes : 000 014 023 degrees QTc Int : 403 ms Sinus rhythm with short OH Otherwise normal ECG No previous ECGs available Referred By: Generic ED Physician Electronically Signed By:SHAYNE NIETO MD
[2023-08-09 10:39] VITALS: BP 115/66; PULSE 78; RESP 16; TEMP 37.5; O2SAT 100; BMI 20.1
[2023-08-09 10:49] LABS: MANUAL DIFF FLAG NO
[2023-08-09 10:50] LABS: Basophils Percent Auto 0.3 % (0-2); Eosinophils Absolute Auto 0.1 X10*3/uL (0.0-0.4); Eosinophils Percent Auto 1.3 % (0-4); Hematocrit 38.6 % (37.0-47.0); Hemoglobin 12.4 g/dl (12.0-16.0); Imm Gran Abs Auto 0.04 X10*3/uL (0.00-0.03); Imm Gran Pct Auto 0.4 % (0.0-0.4); Lymphocytes Absolute Auto 1.3 X10*3/uL (1.2-4.9); Lymphocytes Percent Auto 12.6 % (20-40); Mean Corpuscular HGB Conc 32.1 g/dl (31.0-35.0); Mean Corpuscular Hemoglobin 30.4 pg (27.0-33.0); Mean Corpuscular Volume 94.6 fL (80.0-98.0); Mean Platelet Volume 10.2 fL (9.4-12.3); Monocytes Absolute Auto 0.9 X10*3/uL (0.1-1.2); Monocytes Percent Auto 8.3 % (2-11); Neutrophils Percent Auto 77.1 % (45-73); Platelet Count 314 X10*3/uL (160-400); Red Blood Count 4.08 X10*6/uL (4.20-5.50); Red Cell Distribution Width 12.5 % (11.0-16.0); White Blood Count 10.4 X10*3/uL (4.8-10.8)
[2023-08-09 11:03] LABS: Anion Gap 12 (12-20); Blood Urea Nitrogen 9 mg/dL (9-16); Calcium 9.4 mg/dL (8.4-10.2); Carbon Dioxide 25 mmol/L (22-29); Chloride 108 mmol/L (96-108); Creatinine Clr Calc Pharmacy 102.4; Estimated Glomerular Filt Rate > 60; Glucose Random 86 mg/dL (60-115); Potassium 3.5 mmol/L (3.3-5.1); Sodium 141 mmol/L (135-145)
[2023-08-09 11:13] LABS: Troponin-I High Sensitivity < 2.7 ng/L (<3.5-17.0)
--- NOTE | 2023-08-09 18:32 | ED_ITS ---
HPI - General Adult General Chief complaint: General Medical Stated complaint: Chest pain Time Seen by Provider: 08/09/23 21:56 Source: patient Mode of arrival: ambulatory Limitations: no limitations History of Present Illness HPI narrative: Patient complaining of pain in the left breast for last 5 months got worse last 24 hours no history of injury no pus discharge from the piercing she has no redness no fever no chills Related Data Previous Rx's Medication Instructions Recorded ibuprofen 400 mg tablet 400 mg PO Q6H PRN pain #20 tabs 03/29/21 nitrofurantoin 100 mg PO Q12H 7 days #14 caps 06/01/21 monohydrate/macrocrystals 100 mg capsule (Macrobid) phenazopyridine 200 mg tablet 200 mg PO TID PRN pain 2 days #5 06/01/21 (Pyridium) tabs naproxen 500 mg tablet 500 mg PO BID PRN pain #20 tabs 01/27/23 clindamycin HCl 300 mg capsule 300 mg PO QID #40 caps 08/09/23 doxycycline hyclate 100 mg tablet 100 mg PO BID #20 tabs 08/09/23 ibuprofen 600 mg tablet 600 mg PO Q6H PRN fever or pain 08/09/23 #30 tabs Allergies Allergy/AdvReac Type Severity Reaction Status Date / Time No Known Allergies Allergy Unverified 07/03/20 18:30 Review of Systems 2 Review of Systems: Yes all other systems are reviewed and are negative COUNTS INCLUDE 234 BEDS AT THE [facility] Past Medical History Medical History Migraines No known health problems Social History Social History Patient Tobacco Use Status: Never used Tobacco Advance Directives: No Advance Directives Information Provided: No Physical Exam ED Vital Signs: Vital Signs - 24 hr 08/09/23 10:39 Temperature 99.5 F Pulse Rate 78 Respiratory Rate 16 Blood Pressure 115/66 Pulse Oximetry 100 Oxygen Delivery Method Room Air BMI result Body Mass Index 20.1 Appearance: Alert. Oriented X3. No acute distress. CVS: Normal heart rate and rhythm. Pulses normal. Respiratory: No respiratory distress. Equal air entry bilateral, Breast: 4 x 4 cm lump palpable medial inferior aspect of left breast skin is normal tender to touch Abdomen: Soft and nontender. Bowel sounds are present, Skin: Skin warm and dry. Normal skin color. Normal skin turgor. Extremities: No lower extremity edema. No calf tenderness Neuro: Oriented X 3. Chest Chest/axillae images: 2 1. 4 x 4 cm palpable tender swelling no skin discoloration no pus discharge from the nipple Course Course Course Narrative: This is a rapid medical exam. Deferred additional HPi, ROS, PE to primary provider. 27 yo female here with complaints of intermittent CP x 5 months, now with painful lump to left breast. On exam (conference interpreter used) there is a large firm, indurated area with erythema and warmth to the left breast which is quite tender. ?abscess US ordered.VSS Medications Administered Discontinued Medications Generic Name Dose Route Start Last Admin Trade Name Freq PRN Reason Stop Dose Admin Lidocaine HCl 5 ml 08/09/23 22:48 08/09/23 23:03 Lidocaine Hcl 2 % Mpf 5 Ml Vial INFILTRATI 08/09/23 22:49 5 ml ONCE ONE Administration Procedures Abscess I/D Site: chest (Left breast) Side (if applicable): left Local Anesthetic: lidocaine 2% Amount of anesthesia used (mL): 2 Technique: needle aspiration Amount of fluid expressed (mL): 6 Sent for culture/gram staining?: Yes Irrigation: No Packing used?: none Medical Decision Making Medical Decision Making [facility] Narrative: Patient ultrasound showed abscess in the left breast needle aspiration was done about 6 cc of thick was drained patient has relieved the pain cultures and start antibiotics clindamycin doxycycline patient advised to follow-up with surgeon for further management for excision of the abscess cyst Differential Diagnosis Differential Diagnoses: The differential diagnosis associated with the presentation includes Fibrocystic disease/abscess/breast lump Lab Data [facility] Lab Attestation statement: I reviewed the patient's lab results. 08/09/23 10:37 08/09/23 10:37 Labs: Lab Results 08/09/23 08/09/23 Range/Units 10:37 20:33 WBC 10.4 (4.8-10.8) X10*3/uL RBC 4.08 L (4.20-5.50) X10*6/uL Hgb 12.4 (12.0-16.0) g/dl Hct 38.6 (37.0-47.0) % MCV 94.6 (80.0-98.0) fL MCH 30.4 (27.0-33.0) pg MCHC 32.1 (31.0-35.0) g/dl RDW 12.5 (11.0-16.0) % Plt Count 314 (160-400) X10*3/uL MPV 10.2 (9.4-12.3) fL Immature Gran % (Auto) 0.4 (0.0-0.4) % Neut % (Auto) 77.1 H (45-73) % Lymph % (Auto) 12.6 L (20-40) % [place] % (Auto) 8.3 (2-11) % Eos % (Auto) 1.3 (0-4) % Baso % (Auto) 0.3 (0-2) % Lymph # (Auto) 1.3 (1.2-4.9) X10*3/uL [place] # (Auto) 0.9 (0.1-1.2) X10*3/uL Eos # (Auto) 0.1 (0.0-0.4) X10*3/uL Baso # (Auto) 0.0 (0.0-0.2) X10*3/uL Abs Immat Gran (auto) 0.04 H (0.00-0.03) X10*3/uL Absolute Neuts (auto) 8.0 (2.0-8.3) x10*3/uL Absolute Nucleated RBC 0.000 (0.0-0.012) X10*3/uL Nucleated RBC % (auto) 0.0 (0.0-0.2) /100WBC Sodium 141 (135-145) mmol/L Potassium 3.5 (3.3-5.1) mmol/L Chloride 108 (96-108) mmol/L Carbon Dioxide 25 (22-29) mmol/L Anion Gap 12 (12-20) BUN 9 (9-16) mg/dL Creatinine 0.75 (0.5-1.4) mg/dL Estim Creat Clear Calc 102.4 Estimated GFR > 60 Random Glucose 86 (60-115) mg/dL Calcium 9.4 (8.4-10.2) mg/dL Troponin I High Sens < 2.7 (<3.5-17.0) ng/L Urine Color Yellow Urine Appearance Cloudy Urine pH 6.5 (5.0-9.0) Ur Specific [place] 1.025 (1.005-1.025) Urine Protein Negative (Neg-Trace) mg/dL Urine Glucose (UA) Negative (Negative) mg/dL Urine Ketones Trace (Negative) mg/dL Urine Blood Negative (Negative) Urine Nitrite Negative (Negative) Ur Leukocyte Esterase Trace H (Negative) Urine RBC 0-2 (0-2) /HPF Urine WBC 0-5 (0-5) /HPF Ur Squamous Epith Cells 0-2 (0-2) /HPF Urine Bacteria 4+ (None Seen) Hyaline Casts 0-2 (0-2) /LPF Urine Test NEGATIVE (NEGATIVE) Radiology Impression Discussion of test interpretation with radiology: I have reviewed the radiologist's reading. Radiologist Impression: US/US breast LT limited IMPRESSION: 2.5 x 2.8 x 3.6 cm heterogeneous complex cystic area in the 7:00 axis of the left breast increased with peripheral vascularity. Ultrasound appearance is nonspecific but in the right clinical setting would be suggestive of an abscess. Discharge Plan Discharge Clinical Impression: Abscess of left breast Patient Disposition: Home, Self-Care Instructions: Abscess Incision and Drainage (DC) Additional Instructions: Take antibiotic as prescribed You need to see surgeon for further evaluation and further removal of the abscess Report to the ER if high fever worsening of the swelling or pain [place] el antibi?keny seg?n lo prescrito Debe consultar al cirujano para antonio evaluaci?n m?s detallada y antonio mayor eliminaci?n del absceso. Informe a urgencias si la fiebre kristy empeora la hinchaz?n o el dolor. Prescriptions: New doxycycline hyclate 100 mg tablet 100 mg PO BID Qty: 20 0RF clindamycin HCl 300 mg capsule 300 mg PO QID Qty: 40 0RF ibuprofen 600 mg tablet 600 mg PO Q6H PRN (Reason: fever or pain) Qty: 30 0RF No Action ibuprofen 400 mg tablet 400 mg PO Q6H PRN (Reason: pain) Qty: 20 0RF nitrofurantoin monohyd/m-cryst [Macrobid] 100 mg capsule 100 mg PO Q12H 7 Days Qty: 14 0RF Rx Instructions: must administer with a meal/food phenazopyridine [Pyridium] 200 mg tablet 200 mg PO TID PRN (Reason: pain) 2 Days Qty: 5 0RF naproxen 500 mg tablet 500 mg PO BID PRN (Reason: pain) Qty: 20 0RF Referrals: Garrett Rg MD [Physician] - 3 days Stand Alone Forms: Work/School Release Print Language: Setswana
[2023-08-09 20:46] LABS: Appearance Urine Cloudy; Color Urine Yellow; Glucose Urine UA Negative (Negative); Leukocyte Esterase Urine Trace (Negative); Nitrite Urine Negative (Negative); PH 6.5 (5.0-9.0); Specific Gravity - Urine 1.025 (1.005-1.025); UMIC TRIGGER UACC YES; Urine Blood Negative (Negative); Urine Ketones Trace mg/dL (Negative); Urine Protein Negative (Neg-Trace)
[2023-08-09 20:47] LABS: UPreg QC Valid YES; Urine Pregnancy NEGATIVE (NEGATIVE)
[2023-08-09 21:37] LABS: Bacteria Urine 4+ (None Seen); Hyaline Casts Urine 0-2 /LPF (0-2); RBC Urine 0-2 /HPF (0-2); Squamous Epithelial Cell Urine 0-2 /HPF (0-2); WBC Urine 0-5 /HPF (0-5)
[2023-08-09] MEDS: Lidocaine HCl 2 % MPF 5 ML VIAL INFILTRATI (23:03)
[2023-08-09 23:30] VITALS: BP 124/68; PULSE 68; RESP 16; O2SAT 98
[2023-08-09] MEDS: Doxycycline Monohydrate 100 MG CAPSULE PO (23:51)
[2023-08-09] MEDS: Clindamycin HCL 300 MG CAPSULE PO (23:51)
[2023-08-09] MEDS: Ibuprofen 600 MG TABLET PO (23:51)
== END 2023-08-10 00:02 | disposition home or self-care (01) ==
PROVIDERS: Emergency Provider Internal Medicine; PCP Internal Medicine
DX: N61.1 Abscess of the breast and nipple (principal)
CPT/HCPCS: 10160; 36415; 71045; 76642; 80048; 81001; 81003; 81025; 84484; 85025; 87070; 87147; 87205; 93005; 99284; 99285

== ENCOUNTER 2023-08-19 10:58 | Outpatient (AMB) | payer MEDICAID, SELFPAY ==
--- NOTE | 2023-08-19 11:02 | A.OFFVIS_ITS ---
Intake Vital Signs 08/19/23 11:16 Height 5 ft 6 in Weight 127 lb 6 oz BMI 20.6 BP 116/60 Blood Pressure Location Lt brachial Position Sitting Pulse 78 Intake Visit Reasons: Left Breast Abscess on antibiotics Intake Note: Patient is seen in office for ER follow up visit, following left breast abscess. Patient c/o: onset one week ago, left breast hard to the touch, for the past 5 month has been experiencing pain above the breast to the shoulder, had fluid removed at the ER, feels less pressure, continued pain, on antibiotics Allergies No Known Allergies Allergy (Unverified 07/03/20 18:30) Medication List - Last Reconciled 08/23/23 by Ruben Kilgore MD clindamycin HCl 300 mg PO QID doxycycline hyclate 100 mg PO BID ibuprofen 400 mg PO Q6H PRN ibuprofen 600 mg PO Q6H PRN naproxen 500 mg PO BID PRN nitrofurantoin monohyd/m-cryst 100 mg (Macrobid) 100 mg PO Q12H 7 days phenazopyridine (Pyridium) 200 mg PO TID PRN 2 days HPI HPI Comments History of Present Illness Details 27-year-old female patient presenting wi th a recent history of infection in the left breast. She reports an ongoing history of pain in the left breast for the last 5 months but this increased over the previous week and subsequently necessitated a visit to the emergency department. In the ED she was found to have an area of redness, pain and fluctuance. Ultrasound of the breast confirmed a fluid collection. A needle aspiration was performed in the emergency department and she was subsequently discharged home on antibiotics. Since this time she reports an improvement in the pain but still feels a tender lump within the breast. The redness in the skin is much improved as well. Continues on the antibiotics as prescribed. She denies fever or chills. She denies a previous history of breast infections breast surgery. Her family history is negative for breast cancer. [facility]LY [facility], [facility] Medical History Migraines No known health problems Surgical History History of oophorectomy, unilateral History of dental surgery History of nasal surgery Social History Alcohol intake: current Patient Tobacco Use Status: Never used Tobacco Review of Systems Const All systems reviewed & are unremarkable except as noted in HPI and below Denies nipple discharge Skin/Breast Reports breast swelling, Reports breast pain, Reports breast mass and Denies nipple discharge Physical Exam Vital Signs: Last Vital Signs Pulse 78 08/19/23 11:16 BP 116/60 08/19/23 11:16 BMI result Body Mass Index 20.6 Const General: cooperative and no acute distress Nutritional Appearance: well nourished Orientation/consciousness: patient oriented x3 Limitations: no limitations HEENT Head: Yes normocephalic and Yes atraumatic Ears: hearing grossly normal bilaterally Chest Other: Bilateral areas of tenderness noted with no discrete mass on either side. Left breast: No skin change, no nipple retraction, no nipple discharge, no palpable mass, no enlarged lymph nodes. Right breast: No skin change, no nipple retraction, no nipple discharge, no palpable mass, no enlarged lymph nodes Resp Effort & Inspection: normal respiratory effort, no audible wheezes, no cough and no respiratory distress Cardio Jugular venous distension: no JVD GI Inspection: Yes normal to inspection Skin Other: Warm, dry, no rash Neuro General: patient oriented x3 Extrem General: Yes no clubbing, cyanosis or edema Assessment & Plan Assessment & Plan (1) Abscess of left breast: Code(s): N61.1 - Abscess of the breast and nipple Plan 27-year-old female patient presenting with a recent history of a left breast abscess, status post needle aspiration 1 week prior to examination. Patient does feel improved still has some pain in the left breast. Examination today does not reveal any suspicious findings in either breast low there is tenderness noted bilaterally. No nipple discharge could be expressed. I recommended continuing the antibiotics as prescribed. She will undergo a repeat ultrasound of the breast to evaluate for persistent fluid collection. She should also return following the study to review the results and discuss treatment options. Coding Level of Care Code New Pt Level 4 (61739) Diagnoses Abscess of left breast N61.1
[2023-08-19 11:16] VITALS: BP 116/60; PULSE 78; BMI 20.6
== END 2023-08-19 11:24 | disposition home or self-care (01) ==
PROVIDERS: PCP Internal Medicine; Visit Provider Surgery
DX: N61.1 Abscess of the breast and nipple (principal)
CPT/HCPCS: 99204

== ENCOUNTER → 2023-08-19 10:58 | Outpatient (BNVA) | payer MEDICAID, SELFPAY | PROVIDERS: PCP Internal Medicine; Visit Provider Surgery | DX: N61.1 Abscess of the breast and nipple (principal) | CPT/HCPCS: 99202 ==

== ENCOUNTER 2023-08-25 09:54 | Outpatient (REF) | payer MEDICAID, SELFPAY ==
--- NOTE | ~2023-08-25 | US_ITS ---
EXAMINATION: US DIAGNOSTIC ULTRASOUND BREAST, LEFT CLINICAL INFORMATION: Left breast mastitis, history of abscess. Continued pain, COMPARISON: 08/09/2023 at the emergency Department. TECHNIQUE: Ultrasound of the breast is performed with real-time boo scale imaging and color Doppler. FINDINGS: The previously seen loculated fluid collection at the 7:00 axis of the left breast, anterior one third has resolved currently. There is no discrete fluid collection identified in the area of interest. There are residual changes of mild inflammation and edema within the retroareolar and 7:00 anterior aspect, suggestive of continued mastitis. The patient states she has 6 more days of antibiotics, and a subsequent appointment next week with Dr. Vargas. She will follow up at that time. Results are discussed with the patient at time of visit. US/US breast LT limited mamm only IMPRESSION: No persistent abscess or abnormal fluid collection identified. Similar changes of mastitis in the retroareolar and 7:00 axis of the left breast. No evidence of mass or abnormal shadowing. Recommend continued clinical management. Repeat scanning could be performed if the patient continues to not improve despite antibiotic therapy. ASSESSMENT: BI-RADS 2: Benign RECOMMENDATION: 1. Patient should be managed based on the clinical impression. 2. Otherwise, routine annual screening mammography at age 40.
== END 2023-08-25 09:55 | disposition home or self-care (01) ==
LOC: HO.MAMMO 09:54
PROVIDERS: PCP Internal Medicine; Visit Provider Surgery
DX: N61.1 Abscess of the breast and nipple (principal)
CPT/HCPCS: 76642

== ENCOUNTER → 2023-08-25 10:00 | Outpatient (BNV) | payer MEDICAID, SELFPAY | PROVIDERS: PCP Internal Medicine; Visit Provider Radiology Diagnostic Radiology | DX: N61.0 Mastitis without abscess (principal) | CPT/HCPCS: 76642 ==

== ENCOUNTER 2023-09-20 07:16 | Emergency (ER) | payer OTHER, SELFPAY ==
[2023-09-20 08:10] VITALS: BP 122/71; PULSE 80; RESP 18; TEMP 37.4; O2SAT 100; BMI 19.9
[2023-09-20] MEDS: diphenhydrAMINE HCL 25 MG CAPSULE 50 MG PO (10:28)
[2023-09-20] MEDS: predniSONE 20 MG TABLET 40 MG PO (10:28)
[2023-09-20] MEDS: Famotidine 20 MG TABLET PO (10:28)
--- NOTE | 2023-09-20 11:07 | ED_ITS ---
HPI - General Adult General Chief complaint: General Medical Stated complaint: Allergic reaction Time Seen by Provider: 09/20/23 09:03 Source: patient and RN notes reviewed Mode of arrival: ambulatory Limitations: no limitations History of Present Illness HPI narrative: This is a 27-year-old female, with no known past medical history, presenting to the emergency department with complaints of diffuse itchy rash since yesterday. Patient states that she was on boxing several boxes at work when she suddenly developed a rash to her wrist. She states overnight this is extended diffusely throughout her whole body. She reports that she felt slightly short of breath this morning which resolved after taking Benadryl. Denies any current shortness of breath, difficulty swallowing, difficulty breathing, chest pain. Denies history of similar symptoms in the past. Last dose of Benadryl was at 12:00 AM this morning. No other complaints or concerns at this time. MD complaint: Rash Onset (ago): day(s) Radiation: non-radiation Quality: aching Relieving factors: none Exacerbating factors: none Associated symptoms: denies other symptoms Treatments prior to arrival: none Related Data Previous Rx's Medication Instructions Recorded ibuprofen 400 mg tablet 400 mg PO Q6H PRN pain #20 tabs 03/29/21 nitrofurantoin 100 mg PO Q12H 7 days #14 caps 06/01/21 monohydrate/macrocrystals 100 mg capsule (Macrobid) phenazopyridine 200 mg tablet 200 mg PO TID PRN pain 2 days #5 06/01/21 (Pyridium) tabs naproxen 500 mg tablet 500 mg PO BID PRN pain #20 tabs 01/27/23 clindamycin HCl 300 mg capsule 300 mg PO QID #40 caps 08/09/23 doxycycline hyclate 100 mg tablet 100 mg PO BID #20 tabs 08/09/23 ibuprofen 600 mg tablet 600 mg PO Q6H PRN fever or pain 08/09/23 #30 tabs diphenhydramine HCl 25 mg capsule 50 mg (2 x 25 mg) PO Q6-8H PRN 09/20/23 (Benadryl) allergic reaction #30 caps prednisone 20 mg tablet 40 mg (2 x 20 mg) PO DAILY 4 days 09/20/23 #8 tabs Allergies Allergy/AdvReac Type Severity Reaction Status Date / Time No Known Allergies Allergy Unverified 09/20/23 08:10 Review of Systems Review of Systems: Yes all other systems are reviewed and are negative Constitutional: Constitutional: Reports as per [facility] Past Medical History Attestation statement: The following information was validated with the patient. Medical History Migraines No known health problems Surgical History History of oophorectomy, unilateral History of dental surgery History of nasal surgery Social History Social History Alcohol intake: current Patient Tobacco Use Status: Never used Tobacco Smoked in Last 30 Days: No Use of substances other than those prescribed or required for medical reasons: No Advance Directives: No Patient : No Physical Exam ED Vital Signs: Vital Signs - 24 hr 09/20/23 08:10 09/20/23 11:31 Temperature 99.4 F 98.6 F Pulse Rate 80 88 Respiratory Rate 18 16 Blood Pressure 122/71 112/60 Pulse Oximetry 100 100 Oxygen Delivery Method Room Air Room Air BMI result Body Mass Index 19.9 Const General: cooperative, comfortable and no acute distress Orientation/consciousness: patient oriented x3 Limitations: no limitations HENMT Head: Yes normal to inspection, Yes normocephalic and Yes atraumatic Ears: hearing grossly normal bilaterally General nose exam: Normal external nose present Face and sinus: Yes normal facial exam Mouth: Normal oral and palatal mucosa present, oropharynx normal and moist mucous membranes Throat: Yes posterior oropharynx normal Eyes General: appearance normal, both eyes and all related structures Eyelids: Yes eyelids normal Conjunctivae: conjunctivae normal Sclerae: sclerae normal Pupils: Equal, round and reactive pupils present EOM: EOMs intact bilaterally Neck Neck: Yes normal visual inspection, Yes full ROM and Yes no lymphadenopathy Lymphatic: no lymphadenopathy noted Chest Chest palpation & inspection: normal inspection of the chest Resp Effort & Inspection: normal respiratory effort and able to speak in complete sentences Auscultation: clear to auscultation bilaterally, no crackles, no rales, no rhonchi and no wheezes Cardio Rate: regular rate Rhythm: regular rhythm Heart sounds: S1 normal heart sound present and S2 normal heart sound present GI Inspection: Yes normal to inspection Skin Other: Scattered erythematous macular papular rash noted to the upper extremities, patient actively itching. Neuro General: patient oriented x3 and moves all extremities Cranial nerves: Yes Equal, round and reactive pupils present Extrem General: Yes normal to inspection Right upper extremity: normal to inspection Left upper extremity: normal to inspection Right lower extremity: normal to inspection Left lower extremity: normal to inspection Course Reevaluation(s) Reevaluation #1: Patient re-evaluated, feeling much better, symptoms have resolved after receiving prednisone, Pepcid, and Benadryl. Patient given referral to drafter cartographic. Advised to continue Benadryl, discharged on prednisone for the next 4 days. Advised take this tomorrow. Given return precautions. Patient stable for discharge. Time: 13:52 Medications Administered Discontinued Medications Generic Name Dose Route Start Last Admin Trade Name Freq PRN Reason Stop Dose Admin Diphenhydramine HCl 50 mg 09/20/23 10:16 09/20/23 10:28 Diphenhydramine Hcl 25 Mg Capsule PO 09/20/23 10:17 50 mg ONCE ONE Administration Famotidine 20 mg 09/20/23 10:16 09/20/23 10:28 Famotidine 20 Mg Tablet PO 09/20/23 10:17 20 mg ONCE ONE Administration Prednisone 40 mg 09/20/23 10:16 09/20/23 10:28 Prednisone 20 Mg Tablet PO 09/20/23 10:17 40 mg ONCE ONE Administration Medical Decision Making Medical Decision Making MDM Narrative: 27-year-old Niuean-speaking female presenting to the emergency department with complaints of itchy rash to her upper extremities since yesterday. She believes that she was exposed to something she was allergic to at work yesterday. She has taken 2 doses of Benadryl at home which has provided her without any relief. Denies any current shortness of breath or difficulty swallowing. Denies history of similar symptoms in the past. On arrival, vital signs within normal limits. Lungs are clear to auscultation bilaterally. No wheezes. Given last dose of Benadryl was over 10 hours ago, will medicate patient with Benadryl, Pepcid, and prednisone. Will continue to closely monitor for improvement of her symptoms. Differential Diagnosis Differential Diagnoses: The differential diagnosis associated with the presentation includes Contact dermatitis, anaphylaxis, cellulitis External Record Review External record reviewed: Primary care record Discharge Plan Discharge Clinical Impression: Allergic reaction Patient Disposition: Home, Self-Care Instructions: General Allergic Reaction (ED) Additional Instructions: You presented to the emergency department after being in contact with something that you are allergic to. We medicated you with several different medications and you are feeling better. Please continue taking Benadryl as needed for itching. Please continue taking prednisone, start this tomorrow as you already received y our 1st dose. If any new or worsening symptoms occur including but not limited to difficulty swallowing, shortness of breath, please return for re-evaluation. I am also giving your referral to an drafter cartographic, call to make an appointment. [phone] Se present? al departamento de emergencias despu?s de po estado en contacto con algo a lo que es al?rgico. Le medicamos con varios medicamentos diferentes y se siente mejor. Contin?e tomando Benadryl seg?n sea necesario para la picaz?n. Contin?e tomando prednisona, comience ma?ama porque ya recibi? pradhan primera dosis. Si se presenta alg?n s?ntoma nuevo o que empeora, incluidos, entre otros, dificultad para tragar o dificultad para respirar, regrese para antonio nueva evaluaci?n. Tambi?n doy tu derivaci?n a un alerg?logo, llama para concertar justen. [facility] [phone] Prescriptions: New prednisone 20 mg tablet 40 mg PO DAILY 4 Days Qty: 8 0RF diphenhydramine HCl [Benadryl] 25 mg capsule 50 mg PO Q6-8H PRN (Reason: allergic reaction) Qty: 30 0RF No Action ibuprofen 400 mg tablet 400 mg PO Q6H PRN (Reason: pain) Qty: 20 0RF nitrofurantoin monohyd/m-cryst [Macrobid] 100 mg capsule 100 mg PO Q12H 7 Days Qty: 14 0RF Rx Instructions: must administer with a meal/food phenazopyridine [Pyridium] 200 mg tablet 200 mg PO TID PRN (Reason: pain) 2 Days Qty: 5 0RF naproxen 500 mg tablet 500 mg PO BID PRN (Reason: pain) Qty: 20 0RF doxycycline hyclate 100 mg tablet 100 mg PO BID Qty: 20 0RF clindamycin HCl 300 mg capsule 300 mg PO QID Qty: 40 0RF ibuprofen 600 mg tablet 600 mg PO Q6H PRN (Reason: fever or pain) Qty: 30 0RF Stand Alone Forms: Work/School Release Print Language: Niuean
[2023-09-20 11:31] VITALS: BP 112/60; PULSE 88; RESP 16; TEMP 37; O2SAT 100
== END 2023-09-20 14:36 | disposition home or self-care (01) ==
PROVIDERS: Emergency Provider Emergency Medicine Emergency Medical Services; PCP Internal Medicine
DX: L50.0 Allergic urticaria (principal); Z79.899 Other long term (current) drug therapy
CPT/HCPCS: 99283; 99284

== ENCOUNTER 2023-09-22 13:53 | Emergency (ER) | payer OTHER, SELFPAY ==
[2023-09-22 14:54] VITALS: BP 116/68; PULSE 86; RESP 18; TEMP 36.6; O2SAT 99; BMI 19.4
--- NOTE | 2023-09-22 14:56 | ED_ITS ---
HPI - Allergic Reaction General Chief complaint: Skin/Abscess/Foreign Body Stated complaint: Body aches, itchiness Related Data Previous Rx's Medication Instructions Recorded ibuprofen 400 mg tablet 400 mg PO Q6H PRN pain #20 tabs 03/29/21 nitrofurantoin 100 mg PO Q12H 7 days #14 caps 06/01/21 monohydrate/macrocrystals 100 mg capsule (Macrobid) phenazopyridine 200 mg tablet 200 mg PO TID PRN pain 2 days #5 06/01/21 (Pyridium) tabs naproxen 500 mg tablet 500 mg PO BID PRN pain #20 tabs 01/27/23 clindamycin HCl 300 mg capsule 300 mg PO QID #40 caps 08/09/23 doxycycline hyclate 100 mg tablet 100 mg PO BID #20 tabs 08/09/23 ibuprofen 600 mg tablet 600 mg PO Q6H PRN fever or pain 08/09/23 #30 tabs diphenhydramine HCl 25 mg capsule 50 mg (2 x 25 mg) PO Q6-8H PRN 09/20/23 (Benadryl) allergic reaction #30 caps prednisone 20 mg tablet 40 mg (2 x 20 mg) PO DAILY 4 days 09/20/23 #8 tabs Allergies Allergy/AdvReac Type Severity Reaction Status Date / Time No Known Allergies Allergy Verified 09/22/23 14:54 [facility] [place] Past Medical History Medical History Migraines No known health problems Surgical History History of oophorectomy, unilateral History of dental surgery History of nasal surgery Social History Social History Alcohol intake: current Patient Tobacco Use Status: Never used Tobacco Advance Directives: No Physical Exam ED Vital Signs: BMI result Body Mass Index 19.4 Course Course Course Narrative: This is an RME: Additional HPI, ROS, PE not included below will be deferred to primary provider. This is a 27-ej[age]-mb[age]-female presenting to the emergency department with a complaint of diffuse body itching x 3 days. Patient was seen in the emergency department on September 20, 2023. She is currently on prednisone, and taking Benadryl without any relief. Scattered faint erythematous rash noted throughout. Plan: Further ER evaluation needed. Reevaluation(s) Reevaluation #1: pt eloped prior to completing treatment Discharge Plan Discharge Clinical Impression: Contact dermatitis Patient Disposition: Left W/O Completing Treatment Prescriptions: No Action ibuprofen 400 mg tablet 400 mg PO Q6H PRN (Reason: pain) Qty: 20 0RF nitrofurantoin monohyd/m-cryst [Macrobid] 100 mg capsule 100 mg PO Q12H 7 Days Qty: 14 0RF Rx Instructions: must administer with a meal/food phenazopyridine [Pyridium] 200 mg tablet 200 mg PO TID PRN (Reason: pain) 2 Days Qty: 5 0RF naproxen 500 mg tablet 500 mg PO BID PRN (Reason: pain) Qty: 20 0RF doxycycline hyclate 100 mg tablet 100 mg PO BID Qty: 20 0RF clindamycin HCl 300 mg capsule 300 mg PO QID Qty: 40 0RF ibuprofen 600 mg tablet 600 mg PO Q6H PRN (Reason: fever or pain) Qty: 30 0RF prednisone 20 mg tablet 40 mg PO DAILY 4 Days Qty: 8 0RF diphenhydramine HCl [Benadryl] 25 mg capsule 50 mg PO Q6-8H PRN (Reason: allergic reaction) Qty: 30 0RF Discharge Date/Time: 09/22/23 20:47
== END 2023-09-22 20:47 | disposition left against medical advice (07) ==
PROVIDERS: Emergency Provider Emergency Medicine
DX: L25.9 Unspecified contact dermatitis, unspecified cause (principal); L29.9 Pruritus, unspecified; Z53.21 Procedure and treatment not carried out due to patient leaving prior to being seen by health care provider
CPT/HCPCS: 99281

== ENCOUNTER 2023-09-30 18:09 | Outpatient (REF) | payer OTHER, SELFPAY ==
[2023-10-03 11:24] LABS: C. trachomatis RNA TMA NOT DETECTED (NOT DETECTED); N. gonorrhoeae RNA TMA NOT DETECTED (NOT DETECTED)
== END 2023-09-30 18:10 | disposition home or self-care (01) ==
LOC: HO.HHCLNP 18:09
PROVIDERS: Visit Provider Internal Medicine
DX: N89.8 Other specified noninflammatory disorders of vagina (principal)
CPT/HCPCS: 36415; 81513; 87491; 87591

== ENCOUNTER 2024-08-10 12:26 | Outpatient (REF) | payer MEDICAID, SELFPAY ==
[2024-08-10 15:37] LABS: Ferritin 20 ng/mL (10-122); HCG Quantitative < 2 mIU/mL; TSH reflex Free T4 1.14 uIU/mL (0.32-4.0)
[2024-08-10 15:43] LABS: Folate 12.6 ng/mL (> or = 4.0); Vitamin B12 1035 pg/mL (200-900)
== END 2024-08-10 12:27 | disposition home or self-care (01) ==
LOC: HO.LAB 12:26
PROVIDERS: PCP Internal Medicine; Visit Provider Internal Medicine
DX: R42 Dizziness and giddiness (principal)
CPT/HCPCS: 36415; 82607; 82728; 82746; 84443; 84702

== ENCOUNTER 2024-08-17 12:55 | Outpatient (REF) | payer MEDICAID, SELFPAY | END 2024-08-17 12:56 | disposition home or self-care (01) | LOC: HO.HMGCX 12:55 | PROVIDERS: PCP Internal Medicine; Visit Provider Internal Medicine | DX: N93.8 Other specified abnormal uterine and vaginal bleeding (principal) | CPT/HCPCS: 76830; 76856 ==

== ENCOUNTER 2024-10-12 13:00 | Outpatient (REF) | payer MEDICAID, SELFPAY ==
[2024-10-12 14:35] LABS: Bacterial Vaginosis PCR POSITIVE (Negative); Candida Group PCR NOT DETECTED (Not Detect); Candida glab krusei PCR NOT DETECTED (Not Detect); Trichomonas vaginalis PCR NOT DETECTED (Not Detect)
[2024-10-12 15:09] LABS: CT PCR NOT DETECTED (Not Detect.); NG PCR NOT DETECTED (Not Detect.)
== END 2024-10-12 13:01 | disposition home or self-care (01) ==
LOC: HO.HHCLNP 13:00
PROVIDERS: Visit Provider Internal Medicine
DX: N93.8 Other specified abnormal uterine and vaginal bleeding (principal); N89.8 Other specified noninflammatory disorders of vagina
CPT/HCPCS: 0352U; 87491; 87591

== ENCOUNTER 2024-10-29 09:05 | Outpatient (REF) | payer MEDICAID, SELFPAY ==
--- NOTE | ~2024-10-29 | US_ITS ---
EXAMINATION: US DIAGNOSTIC ULTRASOUND BREAST, LEFT CLINICAL INFORMATION: 29-year-old female with history of mastitis one year ago. Now with left breast tenderness 2-6 o'clock.. COMPARISON: Comparison is made with relevant prior imaging. TECHNIQUE: Ultrasound of the breast is performed with real-time boo scale imaging and color Doppler. FINDINGS: Targeted color Doppler ultrasound scanning from 1-6 o'clock demonstrates normal fibronodular breast tissue. There is no sonographic abnormality. Results are discussed with the patient at time of visit. US/US breast LT limited mamm only IMPRESSION: No sonographic abnormality to account for the patient's left breast tenderness. Recommend clinical evaluation and follow-up. ASSESSMENT: BI-RADS 1: Negative RECOMMENDATION: Clinical evaluation and management. This patient's information was entered into a reminder system with a target due date for their next mammogram. Electronically signed by: Radha Ojeda DO 10/29/2024 09:33 AM [facility] [place]
== END 2024-10-29 09:06 | disposition home or self-care (01) ==
LOC: HO.MAMMO 09:05
PROVIDERS: PCP Internal Medicine; Visit Provider Internal Medicine
DX: N64.4 Mastodynia (principal)
CPT/HCPCS: 76642

== ENCOUNTER → 2024-10-29 09:07 | Outpatient (BNV) | payer MEDICAID, SELFPAY | PROVIDERS: PCP Internal Medicine; Visit Provider Internal Medicine | DX: N61.0 Mastitis without abscess (principal) | CPT/HCPCS: 76642 ==

== ENCOUNTER → 2024-11-06 12:53 | Outpatient (BNVA) | payer SELFPAY | PROVIDERS: PCP Internal Medicine; Visit Provider Registered Nurse | DX: Z02.79 Encounter for issue of other medical certificate (principal) ==

== ENCOUNTER 2025-05-13 13:39 | Outpatient (REF) | payer MEDICAID, SELFPAY ==
--- OUTSIDE RECORDS SUMMARY | 2025-05-13 14:20 | XMS_ITS | Encounter Summary ---
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 Phone Cherri Reilly MD Primary Care Provider + Reason for Visit * Reason Onset Date Comments Nurse Triage 08/22/2023 Encounter Details Date Type Department Care Team (Late st Contact Info) Description 08/22/2023 Telephone [facility] [address] [place], [place] [phone] Cherri Reilly MD [address] [place], [place] [phone] Nurse Triage Social History Tobacco Use Types Packs/Day Years Used Date Smoking Tobacco: Never Passive Smoke Exposure: Never Smokeless Tobacco: Never Alcohol Use Standard Drinks/Week Comments Yes 12 (1 standard drink = 0.6 oz pure alcohol) Approximately #3 cups of wine every other day Depression Answer Date Recorded Patient Health Questionnaire-9 Score 18 03/10/2023 Housing Stability Answer Date Recorded What is your housing situation today? I have doreenmaria eugenia higginbotham 08/09/[address] you li ve. Do you have problems with any of the following? None of the above 08/09/2023 Food Insecurity Answer Date Recorded Within the past 12 months, y ou worried that your food would run out before you got money to buy more: Never True 08/09/2023 Within the past 12 months,th e food you bought just didn't last and you didn't have enough money to get more: Never True Transportation Answer Date Recorded In the past 12 months, has l ack of transportation kept you from medical appts, meetings, work or from getting things needed for daily living? No 08/12/2023 Utilities Answer Date Recorded In the past 12 months, has t he electric, gas, oil or water company threatened to shut off services in your home? No 08/09/2023 Depression Answer Date Recorded Patient Health Questionnaire-2 Score 6 03/10/2023 Comments Unknown Sex and Gender Information Value Date Recorded Sex Assigned at Female 08/16/2022 10:22 AM EDT Legal Sex Female 10:22 AM EDT Gender Identity Female 08/16/2022 10:22 AM EDT Sexual Orientation Straight 08/16/2022 10 :22 AM EDT documented as of this encounter Miscellaneous Notes * Telephone Encounter - Lindsay Hicks RN - 08/22/2023 4:20 PM EST Called pt. Via [employer] format proofreader [phone] Jen. Pt. States that she found a painful lump on her left breast area. It is painful and inflamed. Pt. Needs a letter for work to prohibit her from havingto lift heavy objects. Pt. [place] an appt. with [place] [facility] [place]Call got lost called back [employer] format proofreader [phone] Sherri. Her work sends pt. To do strenuous work and it hurts her breast. Pt. Requesting the note to be written to excuse her from lifting more than 5lbs until she see's surgeon. I advised pt. That she needs to go to [facility] records in [facility] to sign a release to have letter written for her. Pt requesting excuse note from today until 08/26/23. Pt. Wants letter emailed to her at [email or web address]. Pt. Will go to [employer] records to sign release in am on 08/23/23. PCP will be working tomorrow PM 08/23/23 in walk in at [facility]. * Telephone Encounter - Katy Condon - 08/22/2023 4:14 PM EST Symptom: Breast Symptoms Outcome: Schedule an urgent appointment (within 4 hours) or talk to a nurse or provider soon Reason: Painful lump The caller accepted this outcome [place] Speaker documented in this encounter Plan of Treatment Not on file documented as of this encounter Visit Diagnoses Not on filedocumented in this encounter Additional Health Concerns Assessment Noted Time PHQ-9 Depression Total Score: 18 023 9:28 AM EDT documented as of this encounter Care Teams Sheetmetal Trades Worker Relationship Specialty Start Date End Date Cherri Reilly MD [address] [place] [phone] PCP - General Family Medicine 07/10/18 documented as of this encounter
[2025-05-13 15:59] LABS: Bacterial Vaginosis PCR NEGATIVE (Negative); Candida Group PCR NOT DETECTED (Not Detect); Candida glab krusei PCR NOT DETECTED (Not Detect); Trichomonas vaginalis PCR NOT DETECTED (Not Detect)
== END 2025-05-13 13:40 | disposition home or self-care (01) ==
LOC: HO.HHCLNP 13:39
PROVIDERS: Visit Provider Internal Medicine
DX: N89.8 Other specified noninflammatory disorders of vagina (principal)
CPT/HCPCS: 81515